=== PATIENT | female | born 1970 | race Caucasian/White ===

== ENCOUNTER → 2017-09-17 | Outpatient (CLI) | payer OTHER | LOC: MC.RAD 08:40 | DX: Z12.31 Encounter for screening mammogram for malignant neoplasm of breast (principal) ==

== ENCOUNTER → 2018-06-02 | Outpatient (CLI) | payer OTHER | LOC: COL.RAD 09:35 | DX: R43.0 Anosmia (principal) | CPT/HCPCS: A9585 ==

== ENCOUNTER → 2018-10-18 | Outpatient (CLI) | payer OTHER | LOC: MC.RAD 07:07 | DX: Z12.31 Encounter for screening mammogram for malignant neoplasm of breast (principal) ==

== ENCOUNTER → 2019-12-19 | Outpatient (CLI) | payer OTHER | LOC: MC.RAD 13:16 | DX: Z12.31 Encounter for screening mammogram for malignant neoplasm of breast (principal); N63.20 Unspecified lump in the left breast, unspecified quadrant ==

== ENCOUNTER → 2019-12-22 | Outpatient (CLI) | payer OTHER | LOC: MC.RAD 10:18 | DX: N63.20 Unspecified lump in the left breast, unspecified quadrant (principal) ==

== ENCOUNTER → 2020-12-20 | Outpatient (CLI) | payer OTHER | LOC: MC.RAD 07:32 | DX: Z12.31 Encounter for screening mammogram for malignant neoplasm of breast (principal); N63.20 Unspecified lump in the left breast, unspecified quadrant; R92.2 Inconclusive mammogram; Z98.82 Breast implant status ==

== ENCOUNTER → 2020-12-25 | Outpatient (CLI) | payer OTHER | LOC: MC.RAD 12:50 | DX: N64.89 Other specified disorders of breast (principal) ==

== ENCOUNTER → 2021-06-28 | Outpatient (CLI) | payer OTHER | LOC: MC.RAD 06:56 | DX: N64.89 Other specified disorders of breast (principal) ==

== ENCOUNTER → 2021-12-10 | Outpatient (CLI) | payer OTHER | LOC: COL.RAD 07:41 | DX: R89.1 Abnormal level of hormones in specimens from other organs, systems and tissues (principal) | CPT/HCPCS: A9575 ==

== ENCOUNTER → 2022-01-07 | Outpatient (CLI) | payer OTHER | LOC: MC.RAD 15:51 | DX: Z12.31 Encounter for screening mammogram for malignant neoplasm of breast (principal) ==